=== PATIENT | male | born 1945 | race Caucasian/White ===

== ENCOUNTER 2020-05-15 07:48 | Observation (INO) ==
[~2020-05-15 07:48] MED LIST: ISOPROPYL ALCOHOL 480 APPL BTL MC ONE; MORPHINE SULFATE 15 MG TABLET.SA PO PRN; ROPIVACAINE HCL/PF 100 MG, EPINEPHrine 0.2 MG, KETOROLAC TROMETHAMINE 30 MG in NORMAL S... IJ PRN; TRANEXAMIC ACID 1,000 MG in NORMAL SALINE 100 ML IV PRN; ceFAZolin SODIUM 1 GM VIAL IV PRN; ceFAZolin SODIUM 1 GM VIAL ONE
[2020-05-15] MEDS: RINGER'S SOLUTION,LACTATED 1,000 ML IV PRN ×2 (08:09→11:24)
--- NOTE | 2020-05-15 08:24 | ANES ---
Anesthesia Pre Procedure Eval Vitals/Labs: Last Vital Signs Temp 36.4 C 05/15/20 08:00 Pulse 66 05/15/20 08:00 Resp 16 05/15/20 08:00 BP 132/73 05/15/20 08:00 Pulse Ox 96 05/15/20 08:00 HOME MEDICATIONS benazepril 10 mg tablet 10 mg PO DAILY tab 03/23/20 [Last Taken Unknown] hydrochlorothiazide 12.5 mg capsule 12.5 mg PO DAILY cap 03/23/20 [Last Taken 05/15/20 05:45] omeprazole 20 mg capsule,delayed release 20 mg PO DAILY 03/23/20 [Last Taken 05/15/20 05:45] zolpidem 5 mg tablet 5 mg PO HS PRN tab 03/23/20 [Last Taken Unknown] Allergies/Adverse Reactions: Allergies Allergy/AdvReac Type Severity Reaction Status Date / Time No Known Allergies Allergy Verified 05/15/20 08:13 - Planned Procedure Planned Procedure: RT Arthroplasty Total Knee Medication List Reviewed:: Yes Allergies Verified: Yes Medical History (Last Reviewed 05/15/20 @ 08:23 by Fredi Scott CRNA) Bilateral knee pain Onset Date: ~03/23/20 Alcoholic cirrhosis of liver Onset Date: Unknown GERD (gastroesophageal reflux disease) Onset Date: Unknown Hypertension Onset Date: Unknown Insomnia Onset Date: Unknown Right knee pain Onset Date: Unknown 3 cortisone injections in the past-unsure when last one was Surgical History (Last Reviewed 05/15/20 @ 08:23 by Fredi Scott CRNA) History of colonoscopy Onset Date: ~01/2020 [facility]- (per patient) History of right knee surgery Onset Date: Unknown removed cartilage-age 29 History of total hip replacement Onset Date: ~2014 [facility]. Knott Family History (Last Reviewed 05/15/20 @ 08:23 by Fredi Scott CRNA) Mother , age 82 Alzheimers disease Father , age 80 Cancer Prostate CA Brother CVA (cerebral vascular accident) Son Alive and well - Family Anesthesia History Family History:: no untoward family reactions to anesthesia, no familial bleeding tendencies, no family history of clotting disorders, no family history of premature - Airway/Neck/Teeth Within Normal Limits:: Yes Teeth Condition: intact Denture Type: Perm crown/bridge Mallampatti Score: 2 Thyromental (T-M) distance: > 6 cm Mandibulo Hyoid distance: > 3 cm - Respiratory Respiratory Physical: lungs clear Smoking Status: Never smoker Discussed smoking cessation including day of surgery: No Sleep Apnea currently treated: No Sleep Apnea by current assessment: Yes Discussed Risks/Treatment of WILLY: No - Cardiovascular Tolerate Activity: Fair Heart Sounds: S1 & S2, Regular - Gastrointestinal NPO since: mn - Anesthesia Assessment and Plan ASA Class: PS, III Anesthesia Type Plan: Block - Right ultrasound guided adductor canal nerve block for postop analgesia, Spinal
[2020-05-15] MEDS ORDERED: HYDROmorphone HCL 2 MG/ML VIAL IV PRN (08:25)
[2020-05-15] MEDS ORDERED: PROCHLORPERAZINE EDISYLATE 5 MG/ML VIAL IV PRN (08:25)
[2020-05-15] MEDS ORDERED: diphenhydrAMINE HCL 50 MG/ML VIAL IV PRN ×2 (08:25→10:55)
[2020-05-15] MEDS ORDERED: NALOXONE HCL 0.4 MG/ML VIAL IV PRN (08:25)
[2020-05-15] MEDS ORDERED: ONDANSETRON HCL/PF 2 MG/ML VIAL IV PRN ×2 (08:25→10:55)
[2020-05-15] MEDS ORDERED: fentaNYL CITRATE/PF 50 MCG/ML AMPUL ONE (08:39)
[2020-05-15] MEDS ORDERED: ONDANSETRON HCL/PF 2 MG/ML VIAL ONE (08:39)
[2020-05-15] MEDS ORDERED: BUPIVACAINE HCL 50 ML VIAL IJ ONE (08:39)
[2020-05-15] MEDS ORDERED: LIDOCAINE HCL 20 ML VIAL ONE (08:39)
[2020-05-15] MEDS ORDERED: PROPOFOL VIAL IV ONE (08:40)
[2020-05-15] MEDS ORDERED: MAG HYDROX/ALUMINUM HYD/SIMETH 30 ML UDC PO PRN (10:55)
[2020-05-15] MEDS ORDERED: MORPHINE SULFATE 2 MG/ML DISP.SYRIN IV PRN (10:55)
[2020-05-15] MEDS ORDERED: ZOLPIDEM TARTRATE 5 MG TABLET PO PRN (10:55)
[2020-05-15] MEDS ORDERED: MAGNESIUM HYDROXIDE 30 ML UDC PO PRN (10:55)
[2020-05-15] MEDS ORDERED: ACETAMINOPHEN 500 MG TABLET PO PRN (10:55)
--- NOTE | 2020-05-15 10:55 | OR ---
Operative Report - Dictated Report Narrative: Date: 05/15/2020 Preoperative diagnosis: Right knee degenerative joint disease. Postoperative diagnosis: Right knee degenerative joint disease. Procedure: Right total knee arthroplasty. Surgeon: James Jo M.D. Literacy Education Professor: Uriel Hewitt PA-C (provided and essential set of skilled, educated hands that assisted with transfer, positioning, prepping, draping, manipulation, retraction, placement of jigs, injection, insertion of implants, irrigation, closure wounds, and dressings all of which could not be performed by the available surgical crew) Anesthesia: Spinal with regional block and local periarticular joint injection. Complications: None Specimens: Bone. Estimated blood loss: Minimal. Tourniquet time: 115 minutes at 350 millimeters of mercury. Retained implants: Depuy Attune size 7 right lugged cemented posterior stabilized femoral component. Size 7 fixed-bearing cemented tibial platform. 7 by 6 millimeter posterior stabilized cross-linked tibial insert. 41 millimeter medialized patella button. Indications: Mr. Puente is a 75-year-old gentleman who has had longstanding right knee pain and arthrosis. This patient was followed in my clinic for period of time with significant complaints of right knee pain consistent with arthritic changes. He had failed conservative measures including, but not limited to, activity modification, passage of time, medications, and other conservative measures. Patient wished to proceed with surgical treatment. The risks, benefits, and alternatives were discussed in clinic. The risks of , blood clots, bleeding, infection, nerve/tendon blood vessel/ injury, malposition of components, intraoperative fracture, postoperative limited range of motion, persistent pain, failure of components, and need for additional procedures. Patient wished to proceed consent was obtained after answering all questions. Procedure: After marking the correct extremity on the floor, the patient was taken to the operating room. A timeout was performed. IV antibiotics consisting of Ancef were administered prior to the procedure. A regional followed by spinal anesthetic was induced by anesthesia, per my request, on the operative table with all bony prominences well-padded. Martinez catheter was placed, and a bump was placed under the operative side buttock. SCDs and SANIYA hose were utilized on the nonoperative leg. A well-padded tourniquet was applied to the operative thigh. The operative leg was then pre-scrubbed with alcohol, prepped, and draped in a standard sterile fashion. After exsanguinating the extremity with an Esmarch bandage, the tourniquet was inflated. After marking out the anterior knee for standard incision centered over the patella, the skin was incised and dissected down to the joint retinaculum. The joint retinaculum was marked out as well as the horizontal axis of the patella, and a standard medial parapatellar arthrotomy was then made. The most proximal aspect of the quadriceps tendon and the patella tendon insertion were protected from release. A partial synovectomy was performed as well as a resection of the infrapatellar fat pad. The distal femoral fat pad proximal to the trochlea was also resected using cautery. The soft tissues were elevated off the medial as pect of the proximal tibia using a Batista elevator ensuring that we did not transect the medial collateral ligament. Upon initial evaluation range of motion was approximately 10 degrees to 110 degrees of flexion. There were signs of advanced arthrosis in the medial, lateral, and patellofemoral joint spaces. There were large marginal osteophytes which were removed with a rongeur. The knee was hyperflexed and the patella was tucked laterally. Protecting the surrounding soft tissues with Homans, an entry drill was placed down the femoral canal using Whitesides line for guidance into the entry point. The intramedullary femoral alignment sirena was utilized in order to cut the distal femur in 5 degrees of valgus resecting 10 millimeters of bone. Next the distal femur was sized to a size 7. A posterior referencing guide was utilized to place the distal femoral cutting block in 3 degrees of external rotation. This was pinned into place. The rotation was confirmed both visually and based on anatomic landmarks. The 4 in 1 cutting jig of the appropriate size was utilized in order to make all bony cuts. The tammy wing was used to ensure no notching. Retractors were utilized in order to protect surrounding soft tissues. This cut did not result in any excessive notching. We then cut the box centered over the distal femur. This allowed for resection of the anterior and posterior cruciate ligaments. I then turned my attention to the preparation of the tibia. Using an extra medullary tibial alignment sirena, 5 millimeters of bone was resected off the medial articular surface. This was made perpendicular to the mechanical axis of the joint with the alignment sirena centered over the ankle mortise. The alignment sirena was checked and was noted to be parallel to the mechanical axis, centered over the medial one third of the tibial tubercle, paralleling the anterior surface of the tibia. We then turned our attention to the remaining meniscus and soft tissues. These were removed while protecting the surrounding ligaments and soft tissues. The marginal osteophytes off the anterior, posterior, medial, lateral aspects of the femur and tibia were removed. The tibia was sized out to a size 7. Next the tibia was drilled and punched in an externally rotated position. Next the trial femur and a series of tibial inserts were utilized in order to allow for full extension and maximal flexion. It was found that a 6 millimeter insert gave the best range of motion and stability at multiple flexion points as well as at full extension there was less than 2 mm of gapping both medially and laterally. There is minimal anterior translation with the knee at 90 degrees of flexion and no signs of being able to dislocate the knee. The patella was then prepared. The initial thickness was 25 millimeters. This was reamed down to 15 millimeters parallel to the anterior surface of the patella. It was sized out to a size 41 medialized patella button. This was then drilled and trialed. Without any medial restraint the patella tracked appropriately and did not sublux or dislocate. At this point, it was felt these were the appropriate sized implants, and all trials were removed. The standard periarticular joint injection consisting of ropivacaine, Toradol, and epinephrine were injected into the periarticular joint tissues. The bony surfaces were thoroughly irrigated with a pulsatile-suction saline irrigation device. A bone plug from the prior resected anterior chamfer cut was placed into the drill hole at the distal femur. The bony surfaces were then dried in preparation for placement of the implants. The cement was vacuum mixed per the customer acquisition manager's instructions. The cement was placed on the dry bony surfaces and posterior aspect of the implants. The implants were impacted into place, removing all extruded cement. At this point anesthesia administered tranexamic acid per protocol intravenously. The knee was placed in extension with axial loading with the trial insert while the cement cured. Once the cement cured, all remaining extruded cement was removed. The knee was placed through a range of motion with the trial insert to ensure appropriate range of motion and stability. Final range of motion was approximately 0 to 120 degrees. The knee was again thoroughly irrigated with pulsatile saline lavage. The final polyethylene insert was then impacted into place ensuring no retained soft tissues. The remaining periarticular joint injection was injected. A medium Hemovac drain was placed exiting superior laterally. The knee was then placed over a triangle and the arthrotomy was closed with interrupted #1 Vicryl after thoroughly irrigating the joint. The deep and subcutaneous tissues were closed with interrupted 0 and 3-0 Vicryl respectively. Skin was closed with a running subcutaneous 3-0 Monocryl and Prineo Dermabond dressing. 4 x 4's, Sof-Rol, and a full leg Lavon wrap were applied. All sponge, needle, blade, and instrument counts were correct prior to closing the wounds. Postoperative condition: The patient was awoken and transferred to the postanesthesia care unit in stable condition. Plan is to be admitted to the inpatient medical/surgical floor postoperatively for 24 hours of IV antibiotics, physical therapy, occupational therapy, and medical comanagement. Patient will be weightbearing as tolerated with range of motion as tolerated. DVT prophylaxis will be with SCDs, SANIYA hose, and pharmacological anticoagulation. Anticipated hospital stay is approximately 1-3 days.
--- NOTE | 2020-05-15 11:22 | ANES ---
Post Anesthesia Discharge - Transfer of Care Transfer of Care handoff given to nurse: Yes - Discharge from PACU Discharge from PACU when meets criteria: Yes - Discharge to ASU Discharge to ASU-no complications/pt stable: Yes
--- NOTE | 2020-05-15 11:24 | ANES ---
Anesthesia Procedure Note Procedure Note: ANESTHESIA PROCEDURE NOTE Date of Procedure: 05/15/2020. Time of procedure: 0845. Performed by: Fredi Scott CRNA Room Service Server: None. Preprocedure diagnosis: Right knee degenerative joint disease. Post procedure diagnosis: Same. Procedure: Right ultrasound guided adductor canal block for postoperative analgesia. Indications: The patient is a 75-year-old male, requesting right ultrasound- guided abductor canal nerve block for postoperative analgesia related to right total knee arthroplasty. Findings: See below. Details of the procedure: The tissue over the intended target site was cleansed with ChloraPrepand draped in a sterile fashion. 2 ml Lidocaine 1 % was infiltrated to the skin and subcutaneous tissue at the intended target site. Under sterile technique and ultrasound guidance a 20-gauge block needle was inserted through the right sartorius muscle to the saphenous nerve just anterior and medial to the superficial femoral artery and vein. 15 mL's of 0.5% bupivacaine was injected after negative aspiration for blood. Needle tip and spread of local anesthetic surrounding the saphenous nerve was observed throughout the injection with real time ultrasound visualization. The needle was then removed intact. No complications were noted. The images were retained in the Hospital medical database. EBL: Minimal. Fluids: N/A. Specimen: N/A. Post procedure condition: The patient tolerated the procedure well. No complications were noted. Thank you for this consultation. Fredi Scott CRNA
--- NOTE | 2020-05-15 11:48 | ANES ---
Post Anesthesia Assessment - Vital Signs Vitals: Last Vital Signs Temp 36.3 C 05/15/20 11:35 Pulse 73 05/15/20 11:35 Resp 16 05/15/20 11:35 BP 128/70 05/15/20 11:35 Pulse Ox 97 05/15/20 11:35 Airway Patency: Normal - Mental Status Level Of Consciousness: Awake - Pain Level Pain Score: 4 - N/V Assessment Nausea/Vomiting Presence: None Dehydration:: No
[2020-05-15] MEDS: DEXTROSE 5%-LACTATED RINGERS 1,000 ML IV PRN ×2 (11:56→20:24)
[2020-05-15] MEDS: KETOROLAC TROMETHAMINE 15 MG/ML VIAL IV SCH ×2 (12:05→18:03)
[2020-05-15] MEDS: oxyCODONE HCL/ACETAMINOPHEN 1 TAB TABLET PO PRN ×3 (12:37→22:29)
[2020-05-15] MEDS: ceFAZolin SODIUM 1 GM in DEXTROSE 5 % IN WATER 100 ML IV SCH ×4 (13:05→19:00)
[2020-05-15] MEDS: MORPHINE SULFATE 15 MG TABLET.SA PO SCH (20:36)
[2020-05-15] MEDS ORDERED: SENNOSIDES/DOCUSATE SODIUM 1 TAB TABLET PO SCH (21:00)
[2020-05-16] MEDS: KETOROLAC TROMETHAMINE 15 MG/ML VIAL IV SCH ×3 (00:10→12:10)
[2020-05-16] MEDS: ceFAZolin SODIUM 1 GM in DEXTROSE 5 % IN WATER 100 ML IV SCH ×2 (01:18)
[2020-05-16] MEDS: oxyCODONE HCL/ACETAMINOPHEN 1 TAB TABLET PO PRN ×2 (03:48→14:22)
[2020-05-16 06:22] LABS: Hematocrit 35.9 % (42.0-52.0); Hemoglobin 12.1 gm/dL (13.5-18.0); Mean Cell Volume 96.2 fl (78-100); Mean Corpuscular Hemoglobin 32.4 pg (27-31); Mean Corpuscular Hgb Conc 33.7 g/dl (32-36); Mean Platelet Volume 9.6 fl (8-11.3); Platelet Count 163 K/mm3 (150-450); Red Blood Count 3.73 M/mm3 (4.7-6.0); Red Cell Distribution Width 12.4 % (11.5-14.0)
[2020-05-16 06:29] LABS: Anion Gap 10.1 mmol/L (6.8-13.8); BUN/Creatinine Ratio 11.8 (9.0-21.6); Calcium * 8.1 mg/dL (7.9-10.9); Carbon Dioxide 28.2 mmol/L (24-32.6); Estimated Creat Clear 76.4; Potassium 4.3 mmol/L (3.4-4.6)
[2020-05-16] MEDS ORDERED: PANTOPRAZOLE SODIUM 20 MG TABLET.DR PO SCH (07:00)
[2020-05-16] MEDS ORDERED: HYDROCHLOROTHIAZIDE 12.5 MG CAPSULE PO SCH (09:00)
[2020-05-16] MEDS ORDERED: ENALAPRIL MALEATE 5 MG TABLET PO SCH (09:00)
[2020-05-16] MEDS: MORPHINE SULFATE 15 MG TABLET.SA PO SCH (09:46)
[2020-05-16] MEDS ORDERED: ENOXAPARIN SODIUM 40 MG/0.4 ML SYRG SC SCH (09:56)
--- NOTE | 2020-05-16 12:03 | DS ---
(1) Status post right knee replacement Problem: Acute (2) Hypertension Problem: Chronic (3) GERD (gastroesophageal reflux disease) Problem: Chronic Date of Discharge:: 05/16/20 Hospital Course: Mr. Puente was admitted to the floor after undergoing right total knee arthroplasty. Tolerated this well. Was admitted to the floor postoperatively for 24 hours of IV antibiotics, pain control, medical comanagement, and occupational and physical therapy. OT and PT were consulted to assist with activities of daily living and ambulation. Was made weightbearing as tolerated with range of motion as tolerated. Pain was initially controlled with IV regimen. This was transitioned to oral once tolerating a by mouth intake. Was resumed on home diet and medications. Had a Martinez catheter inserted and the operating room which was discontinued on postoperative day 1. A drain was placed intraoperatively into the knee which was discontinued on postoperative day 1. Lovenox SCD and SANIYA hose were utilized for DVT prophylaxis. Vital signs remained stable to the hospital course. Serial labs were obtained which showed a final hemoglobin of 12.1 grams. BMP was reviewed and was stable. Physical examination throughout the hospital course showed an extremity that had sensation that was intact to light touch, palpable pulses, a benign wound, motor intact to the toes, ankle, and knee. Knee range of motion was approximately 5 degrees to 75 degrees. Once an oral pain regimen was tolerated and physical therapy goals were met, it was felt that they were stable for discharge to home. Instructions: Continue with weightbearing as tolerated and range of motion as tolerated. It is OK to shower on the wound if it is not draining. If you note any drainage or for comfort you can cover with dry gauze and tape. Change every 2-3 days as needed. Continue with physical therapy. Resume home diet. Report any fever over 101.5 Fahrenheit, uncontrolled pain, increased drainage, foul odor of drainage, new or increased calf pain or shortness of breath, or any other significant complaints. A 325mg dialy aspirin will be started after finishing anticoagulation if not allergic. Continue with SANIYA hose on the operative extremity until instructed otherwise. No driving until instructed otherwise. Follow up in approximately 10-14 days. Procedures Performed: see notes below List Procedures: Right total knee arthroplasty Results and Findings: Lab Pending Results 05/16/20 06:00: WBC 7.0, RBC 3.73 L, Hgb 12.1 L, Hct 35.9 L, MCV 96.2, MCH 32.4 H, MCHC 33.7, RDW 12.4, Plt Count 163, MPV 9.6 05/16/20 06:00: Sodium 138, Plasma Sodium 138, Potassium 4.3, Chloride 104, Carbon Dioxide 28.2, Anion Gap 10.1, BUN 11, Creatinine 0.93, Est GFR (Non-Af Amer) 84, BUN/Creatinine Ratio 11.8, Random Glucose 117 H, Calcium 8.1 Discharge Location: Home Disposition: Home self-care Condition: Good Discharge Activity: Activity as tolerated, Weight bearing, Other - With wheeled walker Discharge Diet: Low salt Referrals: Elias Simms MD [Primary Care Provider] - Additional Patient Instructions (free text): [facility] outpatient therapy appointment on ThursdayMay 18 at 9:15, please arrive by 9:00 AM. Please fax PT order & demographics to [phone]. Follow up orthopedics appointment on ThursdayJune 06 at 9:30. Prescriptions (Any new or edited meds): Enoxaparin Sodium [Lovenox] 40 mg SC Q24H #7 disp.syrin Transmission Status: Pending to [facility] Morphine Sulfate [Ms Contin] 15 mg PO Q12H #14 tablet.sa Transmission Status: Sent to [facility] oxyCODONE HCL/ACETAMINOPHEN [Percocet 5 MG/325 MG] 2 tab PO Q4H PRN #56 tab PRN Reason: Moderate Pain (Pain Scale 4-6) Transmission Status: Sent to [facility] Sennosides/Docusate Sodium [Senokot-S] 2 tab PO HS #30 tab Transmission Status: Pending to [facility] Complete Home Medications List: Complete Home Medication List: benazepril 10 mg tablet 10 mg PO DAILY tab 03/23/20 hydrochlorothiazide 12.5 mg capsule 12.5 mg PO DAILY cap 03/23/20 omeprazole 20 mg capsule,delayed release 20 mg PO DAILY 03/23/20 zolpidem 5 mg tablet 5 mg PO HS PRN tab 03/23/20 Enoxaparin Sodium [Lovenox] 40 mg SC Q24H #7 disp.syrin 05/16/20 Morphine Sulfate [Ms Contin] 15 mg PO Q12H #14 tablet.sa 05/16/20 Sennosides/Docusate Sodium [Senokot-S] 2 tab PO HS #30 tab 05/16/20 oxyCODONE HCL/ACETAMINOPHEN [Percocet 5 MG/325 MG] 2 tab PO Q4H PRN #56 tab 05/16/20 Amb Orders for Discharge: PT Evaluation and Treatment* Facility: [facility], Location: Rehabilitation Services
[2020-05-16 15:47] VITALS: BP 126/69
== END 2020-05-16 16:13 | disposition home or self-care (01) ==
LOC: MS 07:48 → SUR 07:48
PROVIDERS: ADMIT Orthopaedic Surgery; ATTEND Orthopaedic Surgery

== ENCOUNTER 2020-06-18 08:12 | Observation (INO) ==
[~2020-06-18 08:12] MED LIST changes: -ISOPROPYL ALCOHOL 480 APPL BTL MC ONE; -ROPIVACAINE HCL/PF 100 MG, EPINEPHrine 0.2 MG, KETOROLAC TROMETHAMINE 30 MG in NORMAL S... IJ PRN; +ROPIVACAINE/CLONIDIN/KETOROLAC 50 ML SYRINGE IJ PRN; -ceFAZolin SODIUM 1 GM VIAL ONE
--- NOTE | 2020-06-18 09:10 | ANES ---
Anesthesia Pre Procedure Eval Vitals/Labs: Last Vital Signs Temp 36.6 C 06/18/20 08:31 Pulse 74 06/18/20 08:31 Resp 14 06/18/20 08:31 BP 140/81 06/18/20 08:31 Pulse Ox 99 06/18/20 08:31 HOME MEDICATIONS benazepril 10 mg tablet 10 mg PO DAILY tab 03/23/20 [Last Taken Unknown] hydrochlorothiazide 12.5 mg capsule 12.5 mg PO DAILY cap 03/23/20 [Last Taken 06/18/20] omeprazole 20 mg capsule,delayed release 20 mg PO DAILY 03/23/20 [Last Taken 06/18/20] zolpidem 5 mg tablet 5 mg PO HS PRN tab 03/23/20 [Last Taken Unknown] Sennosides/Docusate Sodium [Senokot-S] 2 tab PO HS #30 tab 05/16/20 [Last Taken Unknown] oxycodone-acetaminophen 5 mg-325 mg tablet 2 tab PO Q4H PRN #56 tab 05/29/20 [Last Taken 06/11/20] aspirin 325 mg tablet 325 mg PO DAILY 06/04/20 [Last Taken 06/11/20] Allergies/Adverse Reactions: Allergies Allergy/AdvReac Type Severity Reaction Status Date / Time No Known Allergies Allergy Verified 06/18/20 08:36 - Planned Procedure Planned Procedure: LT Arthroplasty Total Knee Medication List Reviewed:: Yes Allergies Verified: Yes Medical History (Last Reviewed 06/18/20 @ 09:08 by Fredi Scott CRNA) Primary osteoarthritis of left knee (Chronic) Bilateral knee pain Onset Date: ~03/23/20 Alcoholic cirrhosis of liver Onset Date: Unknown GERD (gastroesophageal reflux disease) Onset Date: Unknown Hypertension Onset Date: Unknown Insomnia Onset Date: Unknown Right knee pain Onset Date: Unknown 3 cortisone injections in the past-unsure when last one was Surgical History (Last Reviewed 06/18/20 @ 09:08 by Fredi Scott CRNA) Hx of total knee arthroplasty Onset Date: ~05/15/20 Right total knee arthroplasty. Dr. Jo History of colonoscopy Onset Date: ~01/2020 [facility]- (per patient) History of right knee surgery Onset Date: Unknown removed cartilage-age 29 History of total hip replacement Onset Date: ~2014 [facility]-Dr. Knott Family History (Last Reviewed 06/18/20 @ 09:08 by Fredi Scott CRNA) Mother , age 82 Alzheimers disease Father , age 80 Cancer Prostate CA Brother CVA (cerebral vascular accident) Son Alive and well - Family Anesthesia History Family History:: no untoward family reactions to anesthesia, no familial bleeding tendencies, no family history of clotting disorders, no family history of premature - Airway/Neck/Teeth Within Normal Limits:: Yes Teeth Condition: intact Denture Type: Perm crown/bridge Mallampatti Score: 2 Thyromental (T-M) distance: > 6 cm Mandibulo Hyoid distance: > 3 cm - Respiratory Respiratory Physical: lungs clear Smoking Status: Never smoker Discussed smoking cessation including day of surgery: No Sleep Apnea currently treated: No Sleep Apnea by current assessment: No Discussed Risks/Treatment of WILLY: No - Cardiovascular Tolerate Activity: Fair Heart Sounds: S1 & S2, Regular - Gastrointestinal NPO since: mn - Anesthesia Assessment and Plan ASA Class: PS, III Anesthesia Type Plan: Block - Left ultrasound guided adductor canal nerve block for postop analgesia, Spinal
[2020-06-18] MEDS: RINGER'S SOLUTION,LACTATED 1,000 ML IV PRN ×3 (09:15→13:23)
[2020-06-18] MEDS ORDERED: ceFAZolin SODIUM 1 GM VIAL ONE (09:40)
[2020-06-18] MEDS ORDERED: BUPIVACAINE HCL 50 ML VIAL IJ ONE (09:43)
[2020-06-18] MEDS ORDERED: LIDOCAINE HCL 20 ML VIAL ONE (09:43)
[2020-06-18] MEDS ORDERED: fentaNYL CITRATE/PF 50 MCG/ML AMPUL ONE (09:43)
[2020-06-18] MEDS ORDERED: ONDANSETRON HCL/PF 2 MG/ML VIAL ONE (09:44)
[2020-06-18] MEDS ORDERED: PROPOFOL VIAL IV ONE (09:44)
[2020-06-18] MEDS ORDERED: ONDANSETRON HCL/PF 2 MG/ML VIAL IV PRN ×2 (10:33→13:45)
[2020-06-18] MEDS ORDERED: diphenhydrAMINE HCL 50 MG/ML VIAL IV PRN ×2 (10:33→13:45)
[2020-06-18] MEDS ORDERED: NALOXONE HCL 0.4 MG/ML VIAL IV PRN (10:33)
[2020-06-18] MEDS ORDERED: HYDROmorphone HCL 2 MG/ML VIAL IV PRN (10:33)
[2020-06-18] MEDS ORDERED: PROCHLORPERAZINE EDISYLATE 5 MG/ML VIAL IV PRN (10:33)
[2020-06-18] MEDS ORDERED: ACETAMINOPHEN 500 MG TABLET PO PRN (13:45)
[2020-06-18] MEDS ORDERED: ZOLPIDEM TARTRATE 5 MG TABLET PO PRN ×2 (13:45→13:47)
[2020-06-18] MEDS ORDERED: DEXTROSE 5%-LACTATED RINGERS 1,000 ML IV PRN (13:45)
[2020-06-18] MEDS ORDERED: MAG HYDROX/ALUMINUM HYD/SIMETH 30 ML UDC PO PRN (13:45)
[2020-06-18] MEDS ORDERED: MORPHINE SULFATE 2 MG/ML DISP.SYRIN IV PRN (13:45)
[2020-06-18] MEDS ORDERED: MAGNESIUM HYDROXIDE 30 ML UDC PO PRN (13:45)
--- NOTE | 2020-06-18 13:45 | OR ---
Operative Report - Dictated Report Narrative: Date: 06/18/2020 Preoperative diagnosis: Left knee degenerative joint disease. Postoperative diagnosis: Left knee degenerative joint disease. Procedure: Left total knee arthroplasty. Surgeon: James Jo M.D. Paper Twister Tender: Uriel Hewitt PA-C (provided and essential set of skilled, educated hands that assisted with transfer, positioning, prepping, draping, manipulation, retraction, placement of jigs, injection, insertion of implants, irrigation, closure wounds, and dressings all of which could not be performed by the available surgical crew) Anesthesia: Spinal with regional block and local periarticular joint injection. Complications: None Specimens: Bone. Estimated blood loss: Minimal. Tourniquet time: 95 minutes at 325 millimeters of mercury. Retained implants: Depuy Attune size 7 left lugged cemented posterior stabilized femoral component. Size 7 fixed-bearing cemented tibial platform. 7 by 5 millimeter posterior stabilized cross-linked tibial insert. 41 millimeter medialized patella button. Indications: Mr. Puente is a 75-year-old gentleman who has had longstanding left knee pain and arthrosis. This patient was followed in my clinic for period of time with significant complaints of left knee pain consistent with arthritic changes. He had failed conservative measures including, but not limited to, activity modification, passage of time, medications, and other conservative measures. Patient wished to proceed with surgical treatment. The risks, benefits, and alternatives were discussed in clinic. The risks of , blood clots, bleeding, infection, nerve/tendon blood vessel/ injury, malposition of components, intraoperative fracture, postoperative limited range of motion, persistent pain, failure of components, and need for additional procedures. Patient wished to proceed consent was obtained after answering all questions. Procedure: After marking the correct extremity on the floor, the patient was taken to the operating room. A timeout was performed. IV antibiotics consisting of Ancef were administered prior to the procedure. A regional followed by spinal anesthetic was induced by anesthesia, per my request, on the operative table with all bony prominences well-padded. Martinez catheter was placed, and a bump was placed under the operative side buttock. SCDs and SANIYA hose were utilized on the nonoperative leg. A well-padded tourniquet was applied to the operative thigh. The operative leg was then pre-scrubbed with alcohol, prepped, and draped in a standard sterile fashion. After exsanguinating the extremity with an Esmarch bandage, the tourniquet was inflated. After marking out the anterior knee for standard incision centered over the patella, the skin was incised and dissected down to the joint retinaculum. The joint retinaculum was marked out as well as the horizontal axis of the patella, and a standard medial parapatellar arthrotomy was then made. The most proximal aspect of the quadriceps tendon and the patella tendon insertion were protected from release. A partial synovectomy was performed as well as a resection of the infrapatellar fat pad. The distal femoral fat pad proximal to the trochlea was also resected using cautery. The soft tissues were elevated off the medial aspect of the proximal tibia using a Batista elevator ensuring that we did not transect the medial collateral ligament. Upon initial evaluation range of motion was approximately 5 degrees to 125 degrees of flexion. There were signs of advanced arthrosis in the medial, lateral, and patellofemoral joint spaces. There were large marginal osteophytes which were removed with a rongeur. The knee was hyperflexed and the patella was tucked laterally. Protecting the surrounding soft tissues with Homans, an entry drill was placed down the femoral canal using Whitesides line for guidance into the entry point. The intramedullary femoral alignment sirena was utilized in order to cut the distal femur in 5 degrees of valgus resecting 10 millimeters of bone. Next the distal femur was sized to a size 7. A posterior referencing guide was utilized to place the distal femoral cutting block in 3 degrees of external rotation. This was pinned into place. The rotation was confirmed both visually and based on anatomic landmarks. The 4 in 1 cutting jig of the appropriate size was utilized in order to make all bony cuts. The tammy wing was used to ensure no notching. Retractors were utilized in order to protect surrounding soft tissues. This cut did not result in any excessive notching. We then cut the box centered over the distal femur. This allowed for resection of the anterior and posterior cruciate ligaments. I then turned my attention to the preparation of the tibia. Using an extra medullary tibial alignment sirena, 3 millimeters of bone was resected off the medial articular surface. This was made perpendicular to the mechanical axis of the joint with the alignment sirena centered over the ankle mortise. The alignment sirena was checked and was noted to be parallel to the mechanical axis, centered over the medial one third of the tibial tubercle, paralleling the anterior surface of the tibia. We then turned our attention to the remaining meniscus and soft tissues. These were removed while protecting the surrounding ligaments and soft tissues. The marginal osteophytes off the anterior, posterior, medial, lateral aspects of the femur and tibia were removed. The tibia was sized out to a size 7. Next the tibia was drilled and punched in an externally rotated position. Next the trial femur and a series of tibial inserts were utilized in order to allow for full extension and maximal flexion. It was found that a 5 millimeter insert gave the best range of motion and stability at multiple flexion points as well as at full extension there was less than 2 mm of gapping both medially and laterally. There is minimal anterior translation with the knee at 90 degrees of flexion and no signs of being able to dislocate the knee. The patella was then prepared. The initial thickness was 25 millimeters. This was reamed down to 15 millimeters parallel to the anterior surface of the patella. It was sized out to a size 41 medialized patella button. This was then drilled and trialed. Without any medial restraint the patella tracked appropriately and did not sublux or dislocate. At this point, it was felt these were the appropriate sized implants, and all trials were removed. The standard periarticular joint injection consisting of ropivacaine, Toradol, and epinephrine were injected into the periarticular joint tissues. The bony surfaces were thoroughly irrigated with a pulsatile-suction saline irrigation device. A bone plug from the prior resected anterior chamfer cut was placed into the drill hole at the distal femur. The bony surfaces were then dried in preparation for placement of the implants. The cement was vacuum mixed per the lot associate's instructions. The cement was placed on the dry bony surfaces and posterior aspect of the implants. The implants were impacted into place, removing all extruded cement. At this point anesthesia administered tranexamic acid per protocol intravenously. The knee was placed in extension with axial loading with the trial insert while the cement cured. Once the cement cured, all remaining extruded cement was removed. The knee was placed through a range of motion with the trial insert to ensure appropriate range of motion and stability. Final range of motion was approximately 0 to 125 degrees. The knee was again thoroughly irrigated with pulsatile saline lavage. The final polyethylene insert was then impacted into place ensuring no retained soft tissues. The remaining periarticular joint injection was injected. A medium Hemovac drain was placed exiting superior laterally. The knee was then placed over a triangle and the arthrotomy was closed with interrupted #1 Vicryl after thoroughly irrigating the joint. The deep and subcutaneous tissues were closed with interrupted 0 and 3-0 Vicryl respectively. Skin was closed with a running subcutaneous 3-0 Monocryl and Prineo Dermabond dressing. 4 x 4's, Sof-Rol, and a full leg Lavon wrap were applied. All sponge, needle, blade, and instrument coun ts were correct prior to closing the wounds. Postoperative condition: The patient was awoken and transferred to the postanesthesia care unit in stable condition. Plan is to be admitted to the inpatient medical/surgical floor postoperatively for 24 hours of IV antibiotics, physical therapy, occupational therapy, and medical comanagement. Patient will be weightbearing as tolerated with range of motion as tolerated. DVT prophylaxis will be with SCDs, SANIYA hose, and pharmacological anticoagulation. Anticipated hospital stay is approximately 1-3 days.
--- NOTE | 2020-06-18 14:04 | ANES ---
Anesthesia Procedure Note Procedure Note: ANESTHESIA PROCEDURE NOTE Date of Procedure: 06/18/2020. Time of procedure: 5. Performed by: Fredi Scott CRNA Method Consultant: None. Preprocedure diagnosis: Left knee degenerative joint disease. Post procedure diagnosis: Same. Procedure: Left ultrasound guided adductor canal block for postoperative analgesia. Indications: The patient is a 75-year-old male, requesting left ultrasound- guided abductor canal nerve block for postoperative analgesia related to left total knee arthroplasty. Findings: See below. Details of the procedure: The tissue over the intended target site was cleansed with ChloraPrepand draped in a sterile fashion. 2 ml Lidocaine 1 % was infiltrated to the skin and subcutaneous tissue at the intended target site. Under sterile technique and ultrasound guidance a 20-gauge block needle was inserted through the left sartorius muscle to the saphenous nerve just anterior and medial to the superficial femoral artery and vein. 15 mL's of 0.5% bupivacaine was injected after negative aspiration for blood. Needle tip and spread of local anesthetic surrounding the saphenous nerve was observed throughout the injection with real time ultrasound visualization. The needle was then removed intact. No complications were noted. The images were retained in the Hospital medical database. EBL: Minimal. Fluids: N/A. Specimen: N/A. Post procedure condition: The patient tolerated the procedure well. No complications were noted. Thank you for this consultation. Fredi Scott CRNA
--- NOTE | 2020-06-18 14:28 | ANES ---
Post Anesthesia Assessment - Vital Signs Vitals: Last Vital Signs Temp 36.5 C 06/18/20 14:20 Pulse 60 06/18/20 14:20 Resp 18 06/18/20 14:20 BP 121/76 06/18/20 14:20 Pulse Ox 95 06/18/20 14:20 Airway Patency: Normal - Mental Status Level Of Consciousness: Awake - Pain Level Pain Score: 0 - N/V Assessment Nausea/Vomiting Presence: None Dehydration:: No
[2020-06-18] MEDS: KETOROLAC TROMETHAMINE 15 MG/ML VIAL IV SCH ×2 (15:01→19:40)
[2020-06-18] MEDS: ceFAZolin SODIUM 1 GM in DEXTROSE 5 % IN WATER 100 ML IV SCH ×4 (15:02→21:13)
[2020-06-18] MEDS: oxyCODONE HCL/ACETAMINOPHEN 1 TAB TABLET PO PRN (16:54)
[2020-06-18] MEDS ORDERED: SENNOSIDES/DOCUSATE SODIUM 1 TAB TABLET PO SCH (21:00)
[2020-06-18] MEDS: MORPHINE SULFATE 15 MG TABLET.SA PO SCH (21:12)
[2020-06-19] MEDS: KETOROLAC TROMETHAMINE 15 MG/ML VIAL IV SCH ×2 (01:49→07:00)
[2020-06-19] MEDS: ceFAZolin SODIUM 1 GM in DEXTROSE 5 % IN WATER 100 ML IV SCH ×2 (03:58)
[2020-06-19] MEDS: oxyCODONE HCL/ACETAMINOPHEN 1 TAB TABLET PO PRN ×2 (05:37→12:38)
[2020-06-19 06:09] LABS: Hematocrit 32.7 % (42.0-52.0); Hemoglobin 10.7 gm/dL (13.5-18.0); Mean Cell Volume 99.1 fl (78-100); Mean Corpuscular Hemoglobin 32.4 pg (27-31); Mean Corpuscular Hgb Conc 32.7 g/dl (32-36); Platelet Count 173 K/mm3 (150-450); Red Cell Distribution Width 12.9 % (11.5-14.0); White Blood Count 7.2 K/mm3 (4.0-10.5)
[2020-06-19 06:21] LABS: Anion Gap 10.6 mmol/L (6.8-13.8); BUN/Creatinine Ratio 15.5 (9.0-21.6); Calcium * 7.9 mg/dL (7.9-10.9); Carbon Dioxide 26.6 mmol/L (24-32.6); Estimated Creat Clear 68.6; Potassium 4.2 mmol/L (3.4-4.6)
[2020-06-19] MEDS ORDERED: PANTOPRAZOLE SODIUM 20 MG TABLET.DR PO SCH (07:00)
[2020-06-19] MEDS: MORPHINE SULFATE 15 MG TABLET.SA PO SCH (08:29)
[2020-06-19] MEDS ORDERED: HYDROCHLOROTHIAZIDE 12.5 MG CAPSULE PO SCH (09:00)
[2020-06-19] MEDS ORDERED: ENALAPRIL MALEATE 5 MG TABLET PO SCH (09:00)
--- NOTE | 2020-06-19 12:27 | DS ---
(1) Status post total left knee replacement Problem: Acute Date of Discharge:: 06/19/20 Hospital Course: 75-year-old male postop day 1 status post left total knee arthroplasty. Patient was admitted postoperatively for monitoring, return to p.o. diet, PT/OT goals, pain control, monitoring for acute postoperative complications. Patient is an uncomplicated stay at this point. He will be discharged home with outpatient follow-up. Plan to begin outpatient PT. Patient has met all his goals at this time with physical therapy the hospital to be discharged. Patient's pain is well controlled with p.o. pain medication. Patient returned to p.o. diet without significant complications. Exam today left lower extremity--> sensation tact light touch, bandages clean dry intact, 5/5 plantar flexion dorsiflexion ankle, distal capillary refill brisk. Patient will continue with continue with following recommendations: -Weightbearing as tolerated, assistive device as needed -PT/OT progress per protocol -P.o. diet as tolerated -P.o. pain medication as prescribed -DVT prophylaxis Lovenox for 7 days followed by 325 mg aspirin daily for 6 weeks -Follow-up with out patient orthopedic office at 3 weeks postop -Maintain dressing in place monitor for erythema or drainage -Disposition: discharge home with outpatient physical therapy and follow-up with orthopedic outpatient clinic Procedures Performed: see notes below List Procedures: Left total knee arthroplasty Results and Findings: Lab Pending Results 06/19/20 06:03: WBC 7.2, RBC 3.30 L, Hgb 10.7 L, Hct 32.7 L, MCV 99.1, MCH 32.4 H, MCHC 32.7, RDW 12.9, Plt Count 173, MPV 9.0 06/19/20 06:03: Sodium 136, Plasma Sodium 136, Potassium 4.2, Chloride 103, Carbon Dioxide 26.6, Anion Gap 10.6, BUN 16, Creatinine 1.03, Est GFR (Non-Af Amer) 75, BUN/Creatinine Ratio 15.5, Random Glucose 119 H, Calcium 7.9 Discharge Location: Home Disposition: Home self-care Condition: Stable Discharge Activity: Activity as tolerated - Assistive device as needed, Weight bearing Discharge Diet: General/regular food Referrals: Elias Simms MD [Primary Care Provider] - Problem Oriented Discharge Instructions to Patient/Family: Total Knee Replac ement, Care After, [id number] Print Language (Tunisian or Trinidadian Available): Tunisian Additional Patient Instructions (free text): Physical [place] at [facility] [place] [facility] [place] 21 at 1:00pm. Please fax demographics and PT order to [phone]. Follow up [facility] Orthopedic office appointment on ThursdayJuly 10 at 9:30am. Prescriptions (Any new or edited meds): Enoxaparin Sodium [Lovenox] 40 mg SC Q24H #6 disp.syrin Transmission Status: Pending to [facility] Morphine Sulfate [Ms Contin] 15 mg PO Q12H #10 tablet.sa Transmission Status: Sent to [facility] oxyCODONE HCL/ACETAMINOPHEN [Percocet 5 MG/325 MG] 2 tab PO Q4H PRN #50 tab PRN Reason: Moderate Pain (Pain Scale 4-6) Transmission Status: Sent to [facility] Sennosides/Docusate Sodium [Senokot-S] 2 tab PO HS #60 tab Transmission Status: Pending to [facility] Complete Home Medications List: Complete Home Medication List: benazepril 10 mg tablet 10 mg PO DAILY tab 03/23/20 hydrochlorothiazide 12.5 mg capsule 12.5 mg PO DAILY cap 03/23/20 omeprazole 20 mg capsule,delayed release 20 mg PO DAILY 03/23/20 zolpidem 5 mg tablet 5 mg PO HS PRN tab 03/23/20 Sennosides/Docusate Sodium [Senokot-S] 2 tab PO HS #30 tab 05/16/20 oxycodone-acetaminophen 5 mg-325 mg tablet 2 tab PO Q4H PRN #56 tab 05/29/20 aspirin 325 mg tablet 325 mg PO DAILY 06/04/20 Enoxaparin Sodium [Lovenox] 40 mg SC Q24H #6 disp.syrin 06/19/20 Morphine Sulfate [Ms Contin] 15 mg PO Q12H #10 tablet.sa 06/19/20 Sennosides/Docusate Sodium [Senokot-S] 2 tab PO HS #60 tab 06/19/20 oxyCODONE HCL/ACETAMINOPHEN [Percocet 5 MG/325 MG] 2 tab PO Q4H PRN #50 tab 06/19/20 Amb Orders for Discharge: PT Evaluation and Treatment* Location: None Selected
[2020-06-19] MEDS ORDERED: ENOXAPARIN SODIUM 40 MG/0.4 ML SYRG SC SCH (12:46)
[2020-06-19 14:50] VITALS: BP 132/74
== END 2020-06-19 14:10 | disposition home or self-care (01) ==
LOC: MS 08:12 → SUR 08:12
PROVIDERS: ADMIT Orthopaedic Surgery; ATTEND Orthopaedic Surgery
DX: M17.12 Unilateral primary osteoarthritis, left knee